=== PATIENT | female | born 1980 | race African-American/Black ===

== ENCOUNTER 2016-05-03 00:10 | Emergency (ER) | payer OTHER ==
[~2016-05-03] VITALS: Ht 167.6 cm; Wt 132.1 kg
[~2016-05-03 00:10] MED LIST: LEVOTHYROXINE SODIUM; MOTRIN800 MG PO; PEN-VEE K,VEET500 MG PO; [UNRECOGNIZED DRUG - REMARK]; [UNRECOGNIZED DRUG - REMARK]; [UNRECOGNIZED DRUG - REMARK]; [UNRECOGNIZED DRUG - REMARK]
[2016-05-03 00:11] VITALS: BP 127/104
[2016-05-03] MEDS ORDERED: PEN-VEE K,VEET500 MG PO (00:52)
== END 2016-05-03 01:16 | disposition home or self-care (01) ==
LOC: EME 00:10
DX: K03.81 Cracked tooth (principal); K02.9 Dental caries, unspecified
CPT/HCPCS: 99281; 99284

== ENCOUNTER 2016-12-28 12:58 | Emergency (ER) | payer OTHER ==
[~2016-12-28] VITALS: Ht 168.9 cm; Wt 126.3 kg
[2016-12-28] MEDS ORDERED: PEN-VEE K,VEET500 MG PO (15:49)
[2016-12-28] MEDS ORDERED: NORCO 5/3251 TABLET PO (15:49)
[2016-12-28 15:55] VITALS: BP 140/88
== END 2016-12-28 15:56 | disposition home or self-care (01) ==
LOC: EME 12:58
DX: K04.7 Periapical abscess without sinus (principal); L03.211 Cellulitis of face; K02.9 Dental caries, unspecified; F17.200 Nicotine dependence, unspecified, uncomplicated; E11.9 Type 2 diabetes mellitus without complications; Z79.4 Long term (current) use of insulin
CPT/HCPCS: 99281; 99283